=== PATIENT | female | born 1960 | race Caucasian/White ===

== ENCOUNTER 2016-07-18 06:09 | Inpatient (IN) | payer BC ==
[2016-07-13 13:36] VITALS: BMI 28.5
[~2016-07-18] VITALS: Ht 160 cm; Wt 73.0 kg
[2016-07-18] VITALS (16 sets, daily range): BP systolic 112–176; RESP 16–19; TEMP 97.9–99.3; Ht 160 cm; Wt 73.0 kg
[2016-07-18] MEDS ORDERED: CEFAZOLIN 1,000 MG in DEXTROSE 5% 50 ML IV ONE (06:25)
[2016-07-18] MEDS ORDERED: LACT RINGERS 1,000 ML IV SCH (06:50)
[2016-07-18] MEDS ORDERED: LIDOCAINE 1% BUFFERED 1 ML SYR INTRADERM PRN (06:50)
[2016-07-18] MEDS ORDERED: MIDAZOLAM 2 MG/2 ML INJ IV ONE (06:50)
[2016-07-18] MEDS ORDERED: GLYCOPYRROLATE 0.2 MG/ML VIAL IV ONE ×2 (06:50→07:48)
[2016-07-18] MEDS ORDERED: PROPOFOL 20 ML PER ML IV ONE (07:48)
[2016-07-18] MEDS ORDERED: PHENYLEPHRINE 10 MG/ML VIAL IV ONE (07:48)
[2016-07-18] MEDS ORDERED: ONDANSETRON 4 MG VIAL IV PUSH ONE (07:48)
[2016-07-18] MEDS ORDERED: ROCURONIUM 50 MG VIAL IV ONE (07:48)
[2016-07-18] MEDS ORDERED: DEXAMETHASONE 4 MG/ML VIAL IV ONE (07:48)
[2016-07-18] MEDS ORDERED: FENTANYL 100 MCG/2 ML AMP IV ONE (07:48)
[2016-07-18] MEDS ORDERED: LIDOCAINE 2% SYR 5 ML IV ONE (07:48)
[2016-07-18] MEDS ORDERED: NEOSTIGMINE 10 MG/10 ML VIAL IV ONE (07:48)
[2016-07-18] MEDS ORDERED: ALBUMIN HUMAN IV ONE (07:48)
[2016-07-18] MEDS ORDERED: NITROGLYCERIN 50 MG/10 ML VIAL IV ONE (07:49)
[2016-07-18] MEDS ORDERED: ACETAMINOPHEN 1,000 MG/100 ML IV ONE (07:49)
[2016-07-18] MEDS ORDERED: BACITRACIN 50,000 UNITS INJ IRRIG ONE (07:49)
[2016-07-18] MEDS ORDERED: LIDOCAINE 1% 50 ML NERVEBLOCK ONE (07:49)
[2016-07-18] MEDS ORDERED: EPINEPHrine 1 MG/ML AMP SUBQ ONE (07:49)
[2016-07-18] MEDS ORDERED: MORPHINE 2 MG/ML SYR IV PRN (08:20)
[2016-07-18] MEDS ORDERED: MORPHINE 4 MG/ML SYR IV PRN (08:20)
[2016-07-18] MEDS ORDERED: OXYCODONE 5 MG TAB PO PRN (08:20)
[2016-07-18] MEDS ORDERED: ONDANSETRON 4 MG VIAL IV PRN (08:20)
[2016-07-18] MEDS ORDERED: MEPERIDINE 25 MG/ML IV PRN (08:20)
[2016-07-18] MEDS ORDERED: DILAUDID 1 MG/ML AMP IV PRN (08:20)
[2016-07-18] MEDS: CEFAZOLIN 2,000 MG in SODIUM CHLORIDE 0.9% 100 ML IV SCH ×2 (13:00→18:44)
[2016-07-18] MEDS ORDERED: BISACODYL 10 MG SUPP RECTAL PRN (13:55)
[2016-07-18] MEDS: ONDANSETRON 4 MG VIAL IV PUSH PRN (16:21)
[2016-07-18] MEDS: MORPHINE 2 MG/ML SYR IV PRN ×4 (16:25→22:50)
[2016-07-18] MEDS: NITROGLYCERIN 2% OINT 1 INCH PKT TOPICAL SCH ×2 (18:33→23:35)
[2016-07-18] MEDS: DOCUSATE SOD 100 MG CAP PO SCH (20:50)
[2016-07-19] MEDS: CEFAZOLIN 2,000 MG in SODIUM CHLORIDE 0.9% 100 ML IV SCH ×2 (00:30→07:10)
[2016-07-19] MEDS: MORPHINE 2 MG/ML SYR IV PRN ×6 (00:47→15:07)
[2016-07-19] MEDS ORDERED: MISSING DOSE XX ONE ×3 (01:20→18:10)
[2016-07-19 03:20] VITALS: BP_SYST 114; RESP 18; TEMP 99.4
[2016-07-19] MEDS: NITROGLYCERIN 2% OINT 1 INCH PKT TOPICAL SCH ×4 (06:00→23:09)
[2016-07-19 07:25] VITALS: BP_SYST 121; RESP 15; TEMP 99.3
[2016-07-19] MEDS: DOCUSATE SOD 100 MG CAP PO SCH ×2 (09:57→20:39)
[2016-07-19 11:13] VITALS: BP_SYST 110; RESP 12; TEMP 99.1
[2016-07-19] MEDS: OXYCODONE/APAP 5/325 TAB PO PRN ×2 (12:02→16:32)
[2016-07-19] MEDS: CEFAZOLIN 500 MG in SODIUM CHLORIDE 0.9% 50 ML IV SCH ×3 (12:50→23:08)
[2016-07-19 15:09] VITALS: BP_SYST 97; RESP 12; TEMP 98.9
[2016-07-19 19:24] VITALS: BP_SYST 113; RESP 18; TEMP 99.3
[2016-07-19] MEDS ORDERED: SODIUM CHLORIDE 0.9% FLUSH BAG 500 ML IV PRN (20:15)
[2016-07-19] MEDS ORDERED: SALINE FLUSH 10 ML FLUSH PRN (20:15)
[2016-07-19] MEDS: SALINE FLUSH 10 ML FLUSH SCH (20:39)
[2016-07-19 22:54] VITALS: BP_SYST 130; RESP 18; TEMP 102.6
[2016-07-20] VITALS (8 sets, daily range): BP systolic 91–133; RESP 16–18; TEMP 98.6–101.9
[2016-07-20] MEDS: OXYCODONE/APAP 5/325 TAB PO PRN ×3 (00:33→10:40)
[2016-07-20] MEDS: CEFAZOLIN 500 MG in SODIUM CHLORIDE 0.9% 50 ML IV SCH (05:57)
[2016-07-20] MEDS: NITROGLYCERIN 2% OINT 1 INCH PKT TOPICAL SCH (05:58)
[2016-07-20] MEDS: ONDANSETRON 4 MG VIAL IV PUSH PRN ×2 (06:20→10:58)
[2016-07-20] MEDS: SALINE FLUSH 10 ML FLUSH SCH (08:26)
[2016-07-20] MEDS: DOCUSATE SOD 100 MG CAP PO SCH (08:26)
== END 2016-07-20 11:51 | disposition home or self-care (01) | DRG 585 ==
LOC: ENRESERVTM → ENRESERVDT → OSEC 06:09 → SDS 14:12 → 5THE 15:22
PROVIDERS: ADMIT Plastic Surgery; ATTEND Plastic Surgery
PROC: 0HBV0ZZ Excision of Bilateral Breast, Open Approach (ICD-10-PCS; principal; 2016-07-18 07:30)
DX: N62 Hypertrophy of breast (principal); L76.81 Other intraoperative complications of skin and subcutaneous tissue; Z90.2 Acquired absence of lung [part of]; Z87.891 Personal history of nicotine dependence; Z85.118 Personal history of other malignant neoplasm of bronchus and lung; Z92.21 Personal history of antineoplastic chemotherapy; G25.81 Restless legs syndrome; L30.4 Erythema intertrigo; N64.59 Other signs and symptoms in breast; Y83.8 Other surgical procedures as the cause of abnormal reaction of the patient, or of later complication, without mention of misadventure at the time of the procedure
CPT/HCPCS: 36415; 80048; 85025; 88305; 94799